=== PATIENT | female | born 1940 | race Caucasian/White ===

== ENCOUNTER → 2016-08-20 | Day surgery (SDC) | payer MEDICARE ==
[~2016-08-20] MED LIST: BENEFIBER1 EAC1 PO; CALCIUM 500 +1 EAC6 PO; VITAMIN D31000 UNIT PO
--- NOTE | ~2016-08-20 | OR ---
Unit #: [id number] #: [id number] Patient: PALLAVI LYON [id number] [address] [place], [place] [address] [id number] O MR#: [id number] NAME: PALLAVI LYON ROOM: Date of Procedure: 08/20/2016 Admission Date: 08/20/2016 Surgeon: John Sosa M.D. : 1940 Attending Physician: Emir Sosa Primary Care Physician: Danelle New M.D. [facility]ENTER OPERATIVE NOTE PROCEDURE PERFORMED Lumbar epidural steroid injection under x-ray guided needle placement. PREOPERATIVE DIAGNOSES 1. Acute lumbar radiculitis. 2. Spinal stenosis, lumbosacral spine. 3. Herniated disk, L4-L5. 4. Degenerative joint disease, lumbosacral spine. 5. Degenerative disk disease, lumbosacral spine. 6. Facet arthrosis, lumbosacral spine. 7. Facet arthralgia, lumbosacral spine. INDICATIONS FOR PROCEDURE The patient presents today with longstanding history of chronic lumbar radicular pain secondary to her underlying degenerative processes. She has been very well managed medically up until the recent past for she began to develop a crescendo pattern increase in her symptoms both in frequency and duration as well as severity, which are unrelieved with her previous treatments which have included nonsteroidal anti-inflammatories and self-directed physical therapy at the [facility]. The patient is in possession of an MRI report, which shows diffuse disease; however, disease most notably worse at the L4-L5 level and there are fairly significant facet arthrosis present. After discussing risks and benefits of proceeding today with a lumbar approach epidural steroid injection with return date on 08/29/2016 for followup, the patient agreed this would be the appropriate course of action. We also discussed referral to [facility] for potential radiofrequency ablation. Again, the patient was in agreement of this course of action. DESCRIPTION OF PROCEDURE She was then taken to the operating room, where she was prepped and draped in a sterile manner. Standard monitors were applied. She refused all forms of sedation and lumbar epidural space accessed at L4-L5 level using loss of resistance technique and x-ray guidance. Needle placement was confirmed with injection of 2 mL of Omnipaque. There was good inferior and superior flow at this L4-L5 injectate level. Following successful needle placement confirmation, the patient received an injectate containing 2 mL normal saline, 2 mL of 0.25% bupivacaine, and 80 mg of methylprednisolone. She tolerated this procedure well. She was discharged home with followup instructions, which include return dates as described above. Unit #: [id number] #: [id number] Patient: PALLAVI LYON Dictated by... Shahida Hurd/sai TD: 08/20/2016 22:30 JOB #: [id number] [facility]ENTER OPERATIVE NOTE Page 1 of 1 X Emir Sosa MD X PROCEDURE OPERATIVE NOTE
== END | disposition home or self-care (01) ==
LOC: CCSC 12:19
DX: G89.29 Other chronic pain (principal); M51.17 Intervertebral disc disorders with radiculopathy, lumbosacral region; M51.16 Intervertebral disc disorders with radiculopathy, lumbar region; M47.27 Other spondylosis with radiculopathy, lumbosacral region; M48.07 Spinal stenosis, lumbosacral region; M19.90 Unspecified osteoarthritis, unspecified site; M81.0 Age-related osteoporosis without current pathological fracture; I10 Essential (primary) hypertension; E78.5 Hyperlipidemia, unspecified; Z88.0 Allergy status to penicillin; Z88.8 Allergy status to other drugs, medicaments and biological substances; Z98.41 Cataract extraction status, right eye; Z98.42 Cataract extraction status, left eye; Z90.721 Acquired absence of ovaries, unilateral; Z98.51 Tubal ligation status; Z98.890 Other specified postprocedural states
CPT/HCPCS: J1040; J2250

== ENCOUNTER → 2016-08-29 | Day surgery (SDC) | payer MEDICARE ==
--- NOTE | ~2016-08-29 | OR ---
Unit #: [id number] #: [id number] Patient: PALLAVI LYON [id number] [address] [place], [place] [address] [id number] O MR#: [id number] NAME: PALLAVI LYON ROOM: Date of Procedure: 08/29/2016 Admission Date: 08/29/2016 Surgeon: John Sosa M.D. : 1940 Attending Physician: Emir Sosa SUR[facility]ENTER OPERATIVE NOTE PROCEDURE PERFORMED Lumbar epidural steroid injection under x-ray guided needle placement. PREOPERATIVE DIAGNOSES 1. Acute lumbar radiculitis. 2. Spinal stenosis, lumbosacral spine. 3. Degenerative joint disease, lumbosacral spine. 4. Degenerative disk disease, lumbosacral spine. 5. Facet arthralgia, lumbosacral spine. 6. Facet arthrosis, lumbosacral spine. INDICATIONS FOR PROCEDURE The patient presents today status post one previous lumbar approach epidural steroid injection for an acute radiculitis, which had failed to respond to conservative therapy. She states that she got good relief with the initial L4-5 injection; however, she did have an unmasking of slightly more severe facet arthralgia pain this may be also due to an increased level of activity associated with improvement in her left-sided radicular pain. However, she does state that her left-sided radicular pain was not completely relieved nor was it continuous relief and since that she has had some remaining symptoms as well as some return of symptoms since her original visit. After discussing risks and benefits of proceeding today with a dual needle access technique as well as an offer to return on 12/05/2016, the patient agreed this would be the appropriate course of action. We also discussed the importance of keep her referral with [facility] for potential RFA. DESCRIPTION OF PROCEDURE Following these discussions, the patient was taken to the operating room, where she was prepped and draped in sterile manner. Standard monitors were applied. She refused all forms of sedation and lumbar epidural space was accessed at L5-S1 and L3-4 levels using loss of resistance technique and x-ray guidance. Needle placement was confirmed with injection of 2 mL of Omnipaque at each site. There was good superior and inferior flow of both of these needle placement locations. Following successful needle placement confirmation, the patient received an injectate containing 4 mL of normal saline and 40 mg of methylprednisolone at each level for a total injected volume of 8 mL of normal saline and 80 mg of methylprednisolone. She tolerated this procedure well. She was discharged home with followup instructions, which include return to this clinic on 12/05/2016. She was instructed if she is asymptomatic at that time to simply not keep that appointment and to follow up as needed. Total x-ray time for today's procedure was 14 seconds. Unit #: [id number] #: [id number] Patient: PALLAVI LYON Dictated by... John Sosa M.D. JRG/modkassandra TD: 08/30/2016 00:19 JOB #: [id number] CC: Danelle New M.D. SUR[facility] CENTER OPERATIVE NOTE Page 1 of 1 X Emir Sosa MD X PROCEDURE OPERATIVE NOTE
== END | disposition home or self-care (01) ==
LOC: CCSC 08:53
DX: M51.17 Intervertebral disc disorders with radiculopathy, lumbosacral region (principal); M47.27 Other spondylosis with radiculopathy, lumbosacral region; M48.07 Spinal stenosis, lumbosacral region; Z88.0 Allergy status to penicillin; Z88.8 Allergy status to other drugs, medicaments and biological substances; Z79.899 Other long term (current) drug therapy; Z98.41 Cataract extraction status, right eye; Z98.42 Cataract extraction status, left eye; Z98.890 Other specified postprocedural states
CPT/HCPCS: J1040; J2250